=== PATIENT | female | born 1995 | race Caucasian/White ===

== ENCOUNTER 2016-12-01 16:45 | Emergency (ER) | payer SELFPAY ==
--- NOTE | 2016-12-01 16:48 | EDM.PDOC ---
ED HPI Trauma - General Chief Complaint: Lower Extremity Injury/Pain Stated Complaint: LT LEG Time Seen by Provider: 12/01/16 16:48 Source: Reports: Patient, RN, RN notes reviewed History Limitations: Reports: No limitations - History of Present Illness INITIAL COMMENTS - FREE TEXT/NARRATIVE: Jumped approximately 3 to 4 feet off a stump at 3:30 p.m today injuring left knee. Unable to move the knee or bear weight due to the pain. Denies any other injury. Symptom Onset Date: 12/01/16 Occurred When: just prior to arrival Occurred Where: other Method of Injury: fall Severity: severe Pain/Injury Location: Reports: lower extremity, left Associated Symptoms: Reports: no other symptoms Allergies/ADRs: Allergies Sulfa (Sulfonamide Antibiotics) Allergy (Verified 12/01/16 16:50) Other Home Medications: Ambulatory Orders . [No Known Home Meds] 12/01/16 [Confirmed 12/01/16] Past Medical History : 2 Para: 2 (AB 0 L2) Social & Family History - Family History Family Medical History: Noncontributory Review of Systems - Review of Systems Review Of Systems: ROS reveals no pertinent complaints other than HPI. Trauma Exam - Physical Exam Exam: See Below Exam Limited By: No limitations General Appearance: Reports: alert, WD/WN, no apparent distress Neck: Reports: non-tender, full range of motion, normal alignment, normal inspection Respiratory Exam: Reports: no respiratory distress Cardiovascular: Reports: normal peripheral pulses Back: Reports: full range of motion, normal inspection, non-tender Extremities: Reports: other (left knee swelling, acutely tender to palpation especially at lateral left knee. No visible bruising or deformity. Skin intact. 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 DIRECTED Care 12/01/16 18:07 Active Splinting [RC] ASDIRECTED Care 12/01/16 18:06 Active Urinary Catheter Assessment [RC] ASDIRECTED Care 12/01/16 18:11 Active HCG QUALITATIVE,URINE [URCHEM] Stat Lab 12/01/16 18:06 Uncollected Sodium Chloride 0.9% [Saline Flush] Med 12/01/16 18:06 Active 10 ml FLUSH ASDIRECTED PRN Peripheral IV Insertion Adult [OM.PC] Stat Oth 12/01/16 18:06 Ordered Medication Orders Sodium Chloride (Saline Flush) 10 ml FLUSH ASDIRECTED PRN PRN Reason: Keep Vein Open Meds: Medications Generic Name Dose Route Start Last Admin Trade Name Freq PRN Reason Stop Dose Admin Sodium Chloride 10 ml 12/01/16 18:06 Saline Flush FLUSH ASDIRECTED PRN Keep Vein Open Discontinued Medications Generic Name Dose Route Start Last Admin Trade Name Freq PRN Reason Stop Dose Admin Hydromorphone HCl 1 mg 12/01/16 17:35 12/01/16 17:59 Dilaudid IM 12/01/16 17:36 1 mg ONETIME ONE Administration Ondansetron HCl 4 mg 12/01/16 17:36 12/01/16 17:55 Zofran Odt PO 12/01/16 17:37 4 mg ONETIME ONE Administration - Radiology Interpretation Free Text/Narrative:: Plain film of left knee: Per rad report shows acute comminuted fracture lateral tibial plateau. CT left knee: per rad report shows comminuted fracture left tibial plateau laterally. Large effusion with blood and/or fat (fluid/fluid level) suprapatellar bursal left knee. Several large bone fragments associated with acute comminuted fracture lateral tibial plateau. Significant impaction but minimal displacement of these anatomically apposed bone fragments. No fractures of the distal left femur or proximal left fibular but generally demineralized appearance. Clinical? Suggest considering DEXA exam after patient is stabilized. No appreciable left knee joint dislocation. No foreign bodies. Departure - Departure Time of Disposition: 18:31 Disposition: DC/Tfer to Acute Hospital 02 Condition: serious Clinical Impression: Closed fracture of tibial plateau Qualifiers: Encounter type: initial encounter Laterality: left Qualified Code(s): S82.142A - Displaced bicondylar fracture of left tibia, initial encounter for closed fracture Forms: ED Department Discharge, Interfacility Transfer EMTALA - My Orders Last 24 Hours: My Active Orders 12/01/16 18:06 Splinting [RC] ASDIRECTED HCG QUALITATIVE,URINE [URCHEM] Stat Sodium Chloride 0.9% [Saline Flush] 10 ml FLUSH ASDIRECTED PRN Peripheral IV Insertion Adult [OM.PC] Stat 12/01/16 18:07 Peripheral IV Care [RC] . DIRECTED 12/01/16 18:11 Urinary Catheter Assessment [RC] ASDIRECTED 12/01/16 18:15 Insert Parks Catheter [Insert Urinary Catheter] [OM.PC] Q24H - Assessment/Plan Last 24 Hours: My Active Orders 12/01/16 18:06 Splinting [RC] ASDIRECTED HCG QUALITATIVE,URINE [URCHEM] Stat Sodium Chloride 0.9% [Saline Flush] 10 ml FLUSH ASDIRECTED PRN Peripheral IV Insertion Adult [OM.PC] Stat 12/01/16 18:07 Peripheral IV Care [RC] . DIRECTED 12/01/16 18:11 Urinary Catheter Assessment [RC] ASDIRECTED 12/01/16 18:15 Insert Parks Catheter [Insert Urinary Catheter] [OM.PC] Q24H
[2016-12-01 16:55] VITALS: BP 122/76
--- NOTE | 2016-12-01 17:20 | CR ---
Clinical history: 21-year-old female injured left knee (jumped off tree stump) and now pain. Interpretation: AP, crosstable lateral view left knee markedly abnormal. Badly comminuted fracture tibial plateau with associated large suprapatellar bursal effusion (fat fl uid level). Symmetrically intact medial joint compartment of the knee and no distal femoral fractures. Proximal fibula unremarkable. No foreign bodies. CONCLUSION: Acute comminuted fracture lateral tibial plateau.
[2016-12-01] MEDS ORDERED: HYDROmorphone 1 MG/ML Syringe IM ONE (17:35)
[2016-12-01] MEDS ORDERED: Ondansetron 4 MG Tab.DIS PO ONE (17:36)
--- NOTE | 2016-12-01 17:36 | CT ---
Clinical history: 21-year-old female severely injured left knee (jumped off a tree stump). Scan technique: Volume acquisition of data emergency unenhanced CT scan of both knees obtained with patient lying supine on the Siemens multi slice CT scanner [place], [place]. All data archived in the PAC system for storage, reformatting and study. Interpretation: Abnormal (impacted, comminuted fracture left tibial plateau, laterally). 1. Large effusion with blood and/or fat (fluid/fluid level) suprapatellar bursal left knee. 2. Several large bone fragments associated with acute comminuted fracture lateral tibial plateau. Si gnificant impaction but minimal displacement of these anatomically apposed bone fragments. 3. No fractures of the distal left femur or proximal left fibula but generally demineralized appeara nce. Clinical? Suggest considering DEXA exam after patient is stabilized. 4. No appreciable left knee joint dislocation. 5. No foreign bodies. 6. Normal contralateral right knee.
[2016-12-01] MEDS: Sodium Chloride 0.9% 10 ML Syringe FLUSH PRN ×2 (18:54→19:13)
[2016-12-01] MEDS ORDERED: HYDROmorphone 1 MG/ML Syringe IVPUSH ONE (19:06)
== END 2016-12-01 19:25 ==
LOC: DL.ED 16:45
DX: S82.142A Displaced bicondylar fracture of left tibia, initial encounter for closed fracture (principal); Z88.2 Allergy status to sulfonamides; W17.89XA Other fall from one level to another, initial encounter
CPT/HCPCS: 51702; 73560; 73700; 81025; 96374; 96376; 99284; 99285; A9270; J1170; J7050